=== PATIENT | male | born 1980 | race Caucasian/White ===

== ENCOUNTER 2016-10-02 13:40 | Emergency (ER) | payer OTHER | END 2016-10-02 14:57 | disposition home or self-care (01) | LOC: FER 13:40 | DX: S29.012A Strain of muscle and tendon of back wall of thorax, initial encounter (principal); I10 Essential (primary) hypertension; J45.909 Unspecified asthma, uncomplicated; F17.210 Nicotine dependence, cigarettes, uncomplicated; Z79.899 Other long term (current) drug therapy | CPT/HCPCS: 99283 ==

== ENCOUNTER 2020-12-12 06:05 | Day surgery (SDCO) | payer OTHER ==
[~2020-12-12] VITALS: Ht 180.3 cm; Wt 89.8 kg
[2020-12-12 06:43] LABS: BASOPHIL 0.4 % (0-2); EOSINOPHIL 0.1 % (0-5); HCT 40.3 % (42.0-52.0); HGB 13.8 g/dl (13.2-18.0); LYMPHOCYTE 21.2 % (15-48); MCH 29.2 pg (25.0-31.0); MCHC 34.2 g/dL (32.0-36.0); MCV 85.2 fL (78.0-100.0); MONOCYTE 9.5 % (0-12); NEUTROPHIL 68.4 % (41-80); NRBC 0; PLT 267 K/uL (150-400); RBC 4.73 M/uL (4.70-6.00); RDW 12.5 % (11.5-14.0); WBC 14.1 K/uL (4.0-10.5)
[2020-12-12 06:58] LABS: INR 1.08 (0.9-1.2); PROTHROMBIN TIME 13.4 SECONDS (11.8-13.4); PTT 30.2 SECONDS (24.4-34.7)
[2020-12-12 07:05] LABS: ALBUMIN 4.1 g/dL (3.4-5.0); BILIRUBIN - TOTAL 0.4 mg/dL (0.2-1.0); GLOBULIN (CALCULATION) 3.7 g/dL; POTASSIUM 3.6 mmol/L (3.5-5.1); TOTAL PROTEIN 7.8 g/dL (6.4-8.2)
[2020-12-12] MEDS ORDERED: TOPAMAX100 MG PO (09:40)
[2020-12-12] MEDS ORDERED: ZYPREXA 5MG TABL5 MG PO (09:42)
[2020-12-12] MEDS ORDERED: TOPROL XL 50 MG50 MG PO (09:43)
[2020-12-12] MEDS ORDERED: TRAZODONE HCL150 MG PO (09:43)
[2020-12-12] MEDS ORDERED: IBUPROFEN800 MG PO (09:45)
== END 2020-12-12 16:36 | disposition home or self-care (01) ==
LOC: FER 06:05 → FMS 07:13
PROVIDERS: Emergency Medicine; ADMIT Internal Medicine
DX: T18.5XXA Foreign body in anus and rectum, initial encounter (principal); K62.89 Other specified diseases of anus and rectum; X58.XXXA Exposure to other specified factors, initial encounter; I10 Essential (primary) hypertension; J45.909 Unspecified asthma, uncomplicated; F31.9 Bipolar disorder, unspecified; F41.9 Anxiety disorder, unspecified; F17.210 Nicotine dependence, cigarettes, uncomplicated; Z88.5 Allergy status to narcotic agent; Z20.822 Contact with and (suspected) exposure to COVID-19
CPT/HCPCS: 36415; 80053; 85025; 85610; 85730; G0378; J1100; J1170; J1885; J2250; J2405; J2704; J3010; J7030; J7120; U0002